=== PATIENT | male | born 2000 | race Caucasian/White ===

== ENCOUNTER 2020-06-23 21:11 | Emergency (ER) | payer SELFPAY ==
[~2020-06-23] VITALS: Ht 190.5 cm; Wt 84.1 kg
[2020-06-23 21:20] VITALS: TEMP 98
[2020-06-23 23:11] VITALS: BP 106/72; PULSE 81
== END 2020-06-23 23:11 | disposition home or self-care (01) ==
LOC: COL.ER 21:11
DX: S01.01XA Laceration without foreign body of scalp, initial encounter (principal); X99.0XXA Assault by sharp glass, initial encounter; Y92.838 Other recreation area as the place of occurrence of the external cause

== ENCOUNTER → 2020-07-01 | Outpatient (CLI) | payer SELFPAY ==
[~2020-07-01] MED LIST: NORCO 325 MG-51 TAB PO
[2020-07-01 17:41] VITALS: BP 127/73; PULSE 69; TEMP 98.5
== END ==
LOC: COL.ER 17:23
DX: Z48.02 Encounter for removal of sutures (principal)

== ENCOUNTER 2020-11-02 01:36 | Emergency (ER) | payer OTHER ==
[~2020-11-02] VITALS: Ht 190.5 cm; Wt 84.1 kg
[2020-11-02 01:46] VITALS: TEMP 97.2
[2020-11-02] MEDS ORDERED: NORCO 325 MG-51 TAB PO (02:15)
[2020-11-02 02:46] VITALS: BP 124/68; PULSE 89
== END 2020-11-02 02:46 | disposition home or self-care (01) ==
LOC: COL.ER 01:36
DX: S43.101A Unspecified dislocation of right acromioclavicular joint, initial encounter (principal); S42.031A Displaced fracture of lateral end of right clavicle, initial encounter for closed fracture; W18.30XA Fall on same level, unspecified, initial encounter